=== PATIENT | male | born 1960 | race Caucasian/White ===

== ENCOUNTER 2018-02-15 10:55 | Emergency (ER) | payer MEDICARE ==
[2018-02-15] MEDS ORDERED: PENICILLIN V POTASSIUM 250 MG TAB PO ONE (11:01)
[2018-02-15] MEDS ORDERED: HYDROCODONE/APAP 7.5/325MG TABLET PO ONE (11:01)
--- NOTE | 2018-02-15 11:06 | Emergency Department Record ---
History of Present Illness - General Chief complaint: ENT Stated complaint: TOOTH ACHE Time Seen by Provider: 02/15/18 11:01 Source: Patient Mode of Arrival: Ambulatory Limitations: No limitations - History of Present Illness Initial comments: 57 yo male presents with left lower posterior molar pain. He has had problems there in the past. The area became painful the last 3 days. No recent dental work. No facial swelling or redness. No pus or significant swelling. MD complaint: Tooth pain -: Days(s) (3) Location: Tooth # (17-18) Severity: Moderate Quality: Aching Consistency: Constant Improves with: None Worsens with: Eating Associated Symptoms: Gum swelling - Related Data Previous Rx's Medication Instructions Recorded Penicillin V Potassium 500 mg PO QID #40 tablet 02/15/18 Allergies Allergy/AdvReac Type Severity Reaction Status Date / Time No Known Allergies Allergy Unverified 01/16/18 15:25 Review of Systems Constitutional: Denies: Chills, Fever, Malaise, Weakness Eyes: Denies: Eye discharge, Eye pain, Photophobia, Vision change ENT: Reports: As per HPI, Dental pain. Denies: Congestion, Throat pain Respiratory: Denies: Cough, Dyspnea, Hemoptysis, Wheezes Cardiovascular: Denies: Chest pain, Palpitations, Syncope Endocrine: Denies: Fatigue Gastrointestinal: Denies: Abdominal pain, Diarrhea, Nausea, Vomiting Genitourinary: Denies: Dysuria, Frequency, Hematuria Musculoskeletal: Reports: Back pain (chronic) Skin: Denies: Bruising, Change in color, Rash Neurological: Denies: Headache Psychiatric: Denies: Anxiety Hematological/Lymphatic: Denies: Blood Clots, Easy bleeding, Easy bruising, Swollen glands Physical Exam - General General Appearance: Alert, Oriented x3, Cooperative, No acute distress Limitations: No limitations - Head Head exam: Normal inspection - Eye Eye exam: Normal appearance. negative: Conjunctival injection, Periorbital swelling - ENT ENT exam: Normal exam, Mucous membranes moist, Normal orophraynx Ear exam: Normal external inspection Nasal Exam: Normal inspection Mouth exam: Normal external inspection Teeth exam: Dental caries, Dental tenderness #, Gingival enlargement (minimal in the area of #17) Throat exam: Normal inspection - Neck Neck exam: Normal inspection, Full ROM. negative: Lymphadenopathy - Rectal Rectal exam: Deferred - exam: Deferred - Neurological Neurological exam: Alert, Oriented X3 - Psychiatric Psychiatric exam: Normal affect, Normal mood - Skin Skin exam: Dry, Intact, Normal color, Warm Course - Reevaluation(s) Reevaluation #1: 02/15/18 11:04 No signs of abscess, mass or swelling, local tenderness Disposition Disposition: Discharge Clinical Impression: Pain, dental Disposition: Home, Self-Care Condition: (1) Good Instructions: Toothache (ED) Additional Instructions: Take the prescriptions provided today as directed. Call your family doctor. Call to schedule the next available appointment for a recheck. Return to ED if your symptoms worsen or if you have any new concerns. Review the final Emergency Record and test results with your doctor on follow up Call the number for a follow up dental appointment with the numbers provided Prescriptions: Penicillin V Potassium 500 mg PO QID #40 tablet Time of Disposition: 11:04 Quality - Quality Measures Quality Measures: N/A - Blood Pressure Screening Does Patient Have Any of the Following: Active Dx of HTN Systolic Measurement: ~ Screening for High Blood Pressure: Patient Exclusion, Hx of HTN [G9744]
== END 2018-02-15 11:15 | disposition home or self-care (01) ==
LOC: ER 10:55
DX: K02.9 Dental caries, unspecified (principal)
CPT/HCPCS: 99282

== ENCOUNTER 2018-10-14 00:31 | Observation (INO) | payer SELFPAY ==
--- NOTE | 2018-10-14 00:52 | Emergency Department Record ---
History of Present Illness - General Chief Complaint: Fall Injury Stated Complaint: FALL Time Seen by Provider: 10/14/18 00:42 Source: Patient Mode of Arrival: Ambulatory Limitations: No limitations - History of Present Illness Initial Comments: The patient is here due to passing out at home and hitting his head. He was in the garage drinking alcohol and was standing when he suddenly lost consciousness and fell backwards, hitting his head on the floor. It was witnessed by a friend he was drinking with. The patient then possibly was not breathing and did not have a pulse and supposedly the friend did CPR on the patient briefly. The patient then woke up and soon was back to normal. There was no reported seizure activity, tongue biting, or incontinence. The patient denied any CP, SOB, or SIMPSON prior to the the passing out and he has felt well since with no symptoms of pain or discomfort. The patient states he has had a similar episode in the past with passing out due to cigarette smoke which was similar to what occurred this AM. MD Complaint: Fall Onset/Timin -: Minutes(s) Fall From: Standing When Fall Occurred: Just prior to arrival Fall Witnessed: No Place Fall Occurred: Home Loss of Consciousness: Unsure Prolonged Down Time?: Unclear Location: Head Severity: Moderate Severity scale (1-10): 4 Quality: Aching Context: Alcohol use, Other Associated Symptoms: Headache - [place] Coma Scale Eye Response: (4) Open spontaneously Motor Response: (4) Withdraws to pain - Related Data Allergies Allergy/AdvReac Type Severity Reaction Status Date / Time No Known Allergies Allergy PT UNSURE Unverified 09/16/18 15:33 OF REACTION ketorolac [From Toradol] AdvReac PT UNSURE Verified 10/14/18 03:15 OF REACTION Travel Screening - Travel/Exposure Within Last 30 Days Have you traveled within the last 30 days?: No - Travel Symptoms Symptom Screening: None Review of Systems Constitutional: Denies: Chills, Fever Eyes: Denies: Eye discharge ENT: Denies: Congestion Respiratory: Denies: Cough, Dyspnea Cardiovascular: Denies: Arrhythmia, Chest pain Endocrine: Denies: Fatigue Gastrointestinal: Denies: Abdominal pain Genitourinary: Denies: Dysuria Musculoskeletal: Denies: Arthralgia Skin: Denies: Bruising Neurological: Denies: Abnormal gait Past Medical History - SOCIAL HISTORY Smoking Status: Former smoker Alcohol Use: Heavy Drug Use: Heavy - RESPIRATORY Hx Respiratory Disorders: No - CARDIOVASCULAR Hx Cardio Disorders: Yes Hx Hypertension: Yes - NEURO Hx Neuro Disorders: No - GI Hx GI Disorders: No - Hx Genitourinary Disorders: No - ENDOCRINE Hx Endocrine Disorders: Yes Hx Diabetes: Yes - MUSCULOSKELETAL Hx Musculoskeletal Disorders: No - PSYCH Hx Psych Problems: No - HEMATOLOGY/ONCOLOGY Hx Hematology/Oncology Disorders: No Family Medical History Any Significant Family History?: No Family Hx Comment (NOT TO BE USED IN PLACE OF ITEMS BELOW): denies Physical Exam - General General Appearance: Alert, Oriented x3, Cooperative, No acute distress - Head Head exam: Normocephalic (There is a stellate lac to the back of the head.). negative: Atraumatic, Normal inspection Image of Face/Head: 1 - Area of stellate Y lac. - Eye Eye exam: Normal appearance, PERRL - ENT Throat exam: Normal inspection. negative: Tonsillar erythema, Tonsillar exudate - Neck Neck exam: Normal inspection, Full ROM. negative: Tenderness - Respiratory Respiratory exam: Normal lung sounds bilaterally, Chest wall tenderness (There is mild L posterior mid to lower rib tenderness.). negative: Respiratory distress - Cardiovascular Cardiovascular Exam: Regular rate, Normal rhythm, Normal heart sounds. negative: Diastolic murmur, Systolic murmur - GI/Abdominal GI/Abdominal exam: Soft, Normal bowel sounds. negative: Rebound, Rigid, Tenderness - Extremities Extremities exam: Normal inspection, Full ROM, Normal capillary refill. negative: Tenderness Image of Full Body: 1 - Area of the patient's rib pain and tenderness. - Back Back exam: Reports: Normal inspection, Full ROM, Other (There is no L scapular tenderness and no bruising over the bone.). Denies: Muscle spasm, Rash noted, Tenderness, Vertebral tenderness - Neurological Neurological exam: Alert, Normal gait, Oriented X3. negative: Abnormal gait, Altered, Motor sensory deficit - Psychiatric Psychiatric exam: negative: Anxious - Skin Skin exam: negative: Rash Course Vital Signs 10/14/18 00:37 Temperature 97.3 F L Pulse Rate [ 90 Pulse Ox Probe] Respiratory 20 Rate Blood Pressure 148/87 [Right Arm] Pulse Ox 99 - Reevaluation(s) Reevaluation #1: The patient is doing very well at this time. He denies any SOB, anterior chest pain or dizziness. The patient is having more pain to the L posterior ribs and since he possibly did have CPR performed we will order a chest CT to be sure he does not have any significant rib fractures. Procedure note: The L posterior scalp lac is basically shaped in a Y and is a total of 6 cm long. The lac was minimally debrided and cleansed with betadine and sterile saline and closed with 12 annel. 10/14/18 02:31 Reevaluation #2: The patient is doing very well at this time. He is resting comfortably and only has a mild SIMPSON and mild L posterior rib pain. I did discuss the neg chest CT for any rib or lung pathology but which did report a possible L scapula fx. The patient states he has a hx of an old scapula fx and does not feel like it is broken at this time. On exam the patient is not tender over the L scapula so clinically it does not appear fractured. 10/14/18 04:08 Medical Decision Making - Data Complexity MDM Data: Labs Ordered and/or Reviewed, X-Ray Ordered and/or Reviewed, EKG Ordered and/or Reviewed - Lab Data Result diagrams: 10/14/18 00:50 10/14/18 00:50 - EKG Data -: EKG Interpreted by Me (NSR at 96, Neg ST changes, nonspeicific T changes inferior leads.) - Radiology Data Radiology results: Report reviewed (Head CT: Neg for any acute abnormalities. Cervical CT: Neg for any acute changes. CXR: Neg Chest CT: Possible L scapula fx.) Disposition Disposition: Admit Clinical Impression: Syncope Qualifiers: Syncope type: unspecified Qualified Code(s): R55 - Syncope and collapse Disposition: Still a Patient at [facility] Decision to Admit: Admit from ER Decision to Admit Date: 10/14/18 Decision to Admit Time: 04:10 Accepting Physician: Fernander Time Discussed w/Accepting Physician: 04:10 Condition: (2) Stable Forms: Patient Portal Access Time of Disposition: 04:10 Quality - Quality Measures Quality Measures: N/A - Blood Pressure Screening View Details: Yes Does Patient Have Any of the Following: No Blood Pressure Classification: Pre-Hypertensive BP Reading Systolic Measurement: 134 Diastolic Measurement: 88 Screening for High Blood Pressure: < Pre-Hypertensive BP, F/U Documented > [G8950] Pre-Hypertensive Follow-up Interventions: Referral to alternative/primary care provider.
[2018-10-14 00:56] LABS: ABSOLUTE NEUTROPHIL COUNT 3.09; BASO % 0.2 % (0-6); EOS % 2.2 % (0-6); GRAN % 61.7 % (47-80); HEMATOCRIT 41.8 % (42.0-52.0); HEMOGLOBIN 14.4 gm/dl (14.0-18.0); LYMPH % 28.1 % (16-45); MEAN CELL VOLUME 87.4 fl (81-97); MEAN CORPUSCULAR HEMOGLOBIN 30.1 pg (27-33); MEAN CORPUSCULAR HGB CONC 34.4 g/dl (32-36); MONO % 7.8 % (0-9); PLATELET COUNT 161 K/uL (130-400); RED BLOOD COUNT 4.78 M/uL (4.40-5.70); RED CELL DISTRIBUTION WIDTH 11.8 % (11.5-14.5)
[2018-10-14 01:09] LABS: BLOOD UREA NITROGEN 17 mg/dL (8-23); CREATININE 0.8 mg/dL (0.7-1.2); EST GLOMERULAR FILTRATION RATE > 60 mL/min
[2018-10-14 01:10] LABS: TOTAL PROTEIN 6.1 g/dL (6.6-8.7)
[2018-10-14 01:11] LABS: INR 1.1; PARTIAL THROMBOPLASTIN TIME 23.1 SECONDS (24.5-39.1); PROTHROMBIN TIME (PATIENT) 10.7 SECONDS (9.5-12.1)
[2018-10-14 01:12] LABS: GLUCOSE,RANDOM 302 mg/dL (74-109)
[2018-10-14 01:14] LABS: ALB/GLOB RATIO 2.2 (1.1-1.8); ALBUMIN 4.2 g/dL (4.0-5.0); ALT/SGPT 21 U/L (<41); AST/SGOT 17 U/L (10.0-50.0)
[2018-10-14 01:15] LABS: ALKALINE PHOSPHATASE 68 U/L (40-129); CREATINE PHOSPHOKINASE 123 U/L (39-308)
[2018-10-14 01:16] LABS: CKMB 2.9 ng/mL (<6.73)
[2018-10-14] MEDS ORDERED: LIDOCAINE 1% W/EPI 1:200,000 MPF 30ML SQ ONE (01:40)
[2018-10-14 02:01] LABS: AMPHETAMINE SCREEN URINE NOT DETECTED; BARBITURATE SCREEN URINE NOT DETECTED; BENZODIAZEPINE SCREEN URINE NOT DETECTED; COCAINE SCREEN URINE NOT DETECTED; METHADONE SCREEN URINE NOT DETECTED; METHAMPHETAMINE SCREEN NOT DETECTED; OPIATE SCREEN URINE NOT DETECTED; OXYCODONE SCREEN URINE NOT DETECTED; PHENCYCLIDINE SCREEN URINE NOT DETECTED; PROPOXYPHENE SCREEN URINE NOT DETECTED; THC SCREEN URINE DETECTED; TRICYCLIC ANTIDEPRESSANT SCRN NOT DETECTED
[2018-10-14] MEDS ORDERED: KETOROLAC 30 MG/ML VIAL IVP ONE (03:04)
[2018-10-14] MEDS ORDERED: HYDROMORPHONE HCL 2 MG/ML VIAL IVP ONE (03:14)
[2018-10-14] MEDS: IBUPROFEN 600 MG TABLET PO ONE ×2 (03:22→03:36)
[2018-10-14] MEDS ORDERED: HYDROCODONE/APAP 5/325MG TABLET PO PRN (04:31)
[2018-10-14] MEDS: ACETAMINOPHEN 325 MG TAB PO PRN ×2 (05:20→11:34)
[2018-10-14] MEDS ORDERED: GLIPIZIDE 5 MG TABLET PO SCH (08:15)
[2018-10-14] MEDS: LISINOPRIL 5 MG TABLET PO SCH ×2 (08:25→09:34)
[2018-10-14] MEDS: ASPIRIN 81 MG TABEC PO SCH ×2 (08:26→09:34)
[2018-10-14] MEDS: PIOGLITAZONE HCL 15 MG TABLET PO SCH ×2 (08:27→09:34)
--- NOTE | 2018-10-14 09:20 | History & Physical ---
History of Present Illness - Date of Service Date of Service for History & Physical: 10/14/18 - History of Present Illness Admitting Diagnosis: 1. Syncopal Event. R/O Arrythmia. History of Present Illness: Cole Banerjee is a 58 y.o. M who was brought into the ED d/t a potential syncopal episode. Had a witnessed fall last night where he fell b ackwards, hitting his head on the floor. He had been drinking alcohol and smoking marijuana with a friend who started CPR on the patient when he was not breathing. He denied having any CP, SOB, heart palpitations or dizziness before the episode. Also c/o L rib pain which imaging showed negative for fx. Significant Head Laceration, which was repaired by Dr. Powell in ED. PMHx includes DM II and HTN PCP: Uzma Vela NP ED Course Vitals: T 97.3, HR 90, BP 148/87, RR 20, SPO2 99% on RA EKG: Sinus Rhythm, Negative ST changes, nonspecific T changes Head CT: Negative Cervical CT: Negative CXR: Negative Chest CT: Left scapula fx (pt reports is old) Labs: CBC WNL, Glucose 302, Trops Neg. Tox Panel: + Cannabis and Alcohol 0.026 10/14/18 1030 Vitals: T 98.1, HR 87, BP 141/70, RR 16, SPO2 96% on RA Reports pain 2/10 to laceration site and ribs. Tylenol and Ibuprofen sufficient for pain control. Denies having any CP, SOB, MARTINS, palpitations, dizziness, lightheadedness, increased fatigue currently or in the past. States that he had an episode like this happen in 1992 and he had a cardiac work up done and reports that nothing was wrong with his heart. Has not seen a marketing support assistant since and doesn't believe he needs to. Reports that any time he smokes cigarettes, he will get very lightheaded and dizzy and this is why he has basically stopped smoking. Believes this is all related to tobacco use. Reports that Dr. Powell stated that he needed to keep annel in laceration site for 10 days and that he was told he could return to the [facility] ED to have them removed so that he wouldn't be charged anything. States that he does not have very good insurance coverage and has to pay out of pocket for many things. Travel Screening - Travel/Exposure Within Last 30 Days Have you traveled within the last 30 days?: No - Travel/Exposure Within Last Year Have you traveled outside the [place] in the last year?: No - Additonal Travel Details Have you been exposed to anyone with a communicable illness?: No - Travel Symptoms Symptom Screening: None Review of Systems Constitutional: Denies: Chills, Fever, Weakness Eyes: Denies: Eye discharge ENT: Denies: Congestion Respiratory: Denies: Cough, Dyspnea Cardiovascular: Denies: Arrhythmia, Chest pain Endocrine: Denies: Fatigue Gastrointestinal: Denies: Abdominal pain Genitourinary: Denies: Dysuria Musculoskeletal: Denies: Arthralgia Skin: Denies: Bruising Neurological: Denies: Abnormal gait Past Medical History - SOCIAL HISTORY Smoking Status: Former smoker Alcohol Use: Occasional Drug Use: Heavy Drug Use Detail:: Marijuana - RESPIRATORY Hx Respiratory Disorders: No - CARDIOVASCULAR Hx Cardio Disorders: Yes Hx Hypertension: Yes - NEURO Hx Neuro Disorders: No - GI Hx GI Disorders: No - Hx Genitourinary Disorders: No - ENDOCRINE Hx Endocrine Disorders: Yes Hx Diabetes: Yes - MUSCULOSKELETAL Hx Musculoskeletal Disorders: No - PSYCH Hx Psych Problems: No - HEMATOLOGY/ONCOLOGY Hx Hematology/Oncology Disorders: No Family Medical History Any Significant Family History?: No Family Hx Comment (NOT TO BE USED IN PLACE OF ITEMS BELOW): denies H&P Meds/Allergies - Allergies Allergies: Allergies Allergy/AdvReac Type Severity Reaction Status Date / Time ketorolac [From Toradol] AdvReac PT UNSURE Verified 10/14/18 03:15 OF REACTION - Active Medications Active Medications: Current Medications Acetaminophen (Tylenol 325mg) 650 mg PO Q6H PRN PRN Reason: PAIN - MILD(1-4)/FEVER Last Admin: 10/14/18 05:20 Dose: 650 mg Documented by: Hydrocodone Bitart/Acetaminophen ([place] 5mg/325mg) 1 each PO Q4H PRN PRN Reason: PAIN - MOD TO SEVERE (5-10) Aspirin (Ecotrin (Ec)) 81 mg PO DAILYWM [facility] Last Admin: 10/14/18 08:26 Dose: 81 mg Documented by: Glipizide (Glucotrol) 10 mg PO DAILYWM [facility] Last Admin: 10/14/18 08:25 Dose: 10 mg Documented by: Lisinopril (Zestril) 5 mg PO DAILYWM [facility] Last Admin: 10/14/18 08:25 Dose: 5 mg Documented by: Pioglitazone HCl (Actos) 15 mg PO DAILYWM [facility] Last Admin: 10/14/18 08:27 Dose: 15 mg Documented by: Physical Exam - Vital Signs Vital Signs: Vital Signs - Last 24 Hrs Temp Pulse Pulse Resp BP BP Pulse Ox 10/14/18 08:00 98.1 F 87 16 141/70 96 10/14/18 05:03 18 10/14/18 04:30 98.0 F 84 18 124/79 97 10/14/18 04:13 91 H 20 134/88 96 10/14/18 03:04 88 20 139/87 96 10/14/18 02:06 88 20 139/89 97 10/14/18 00:37 97.3 F L 90 20 148/87 99 - General General Appearance: Alert, Oriented x3, Cooperative, No acute distress Limitations: No limitations - Head Head exam: Normocephalic (There is a stellate lac to the back of the head.). negative: Atraumatic, Normal inspection - Eye Eye exam: Normal appearance, PERRL - ENT Throat exam: Normal inspection. negative: Tonsillar erythema, Tonsillar exudate - Neck Neck exam: Normal inspection, Full ROM. negative: Tenderness - Respiratory Respiratory exam: Normal lung sounds bilaterally, Chest wall tenderness (There is mild L posterior mid to lower rib tenderness.). negative: Respiratory distress - Cardiovascular Cardiovascular Exam: Regular rate, Normal rhythm, Normal heart sounds. negative: Diastolic murmur, Systolic murmur - GI/Abdominal GI/Abdominal exam: Soft, Normal bowel sounds. negative: Rebound, Rigid, Tenderness - Extremities Extremities exam: Normal inspection, Full ROM, Normal capillary refill. n egative: Tenderness - Back Back exam: Reports: Normal inspection, Full ROM, Other (There is no L scapular tenderness and no bruising over the bone.). Denies: Muscle spasm, Rash noted, Tenderness, Vertebral tenderness - Neurological Neurological exam: Alert, Normal gait, Oriented X3. negative: Abnormal gait, Altered, Motor sensory deficit - Psychiatric Psychiatric exam: negative: Anxious - Skin Skin exam: Other (laceration with annel to posterior head). negative: Rash Results - Labs Result Diagrams: 10/14/18 00:50 10/14/18 00:50 Labs Last 24 Hours: Laboratory Results - last 24 hr 10/14/18 10/14/18 10/14/18 00:50 00:50 00:50 WBC 5.0 RBC 4.78 Hgb 14.4 Hct 41.8 L MCV 87.4 MCH 30.1 MCHC 34.4 RDW 11.8 Plt Count 161 MPV 10.0 Gran % 61.7 Lymphocytes % 28.1 Monocytes % 7.8 Eosinophils % 2.2 Basophils % 0.2 Absolute Neutrophils 3.09 PT 10.7 INR 1.1 APTT 23.1 L Sodium 137 Potassium 3.4 Chloride 97 L Carbon Dioxide 24.0 Anion Gap 16.0 BUN 17 Creatinine 0.8 Estimated GFR > 60 Random Glucose 302 H Calcium 8.6 L Total Bilirubin 0.40 AST 17 ALT 21 Alkaline Phosphatase 68 Creatine Kinase 123 CK-MB (CK-2) 2.9 Troponin T < 0.010 Total Protein 6.1 L Albumin 4.2 Globulin 1.9 Albumin/Globulin Ratio 2.2 H Urine Opiates Screen Ur Oxycodone Screen Urine Methadone Screen Ur Propoxyphene Screen Ur Barbituates Screen Ur Tricyclics Screen Ur Phencyclidine Scrn Ur Amphetamine Screen U Methamphetamines Scrn U Benzodiazepines Scrn Urine Cocaine Screen Urine Cannabis Screen Ethyl Alcohol 10/14/18 10/14/18 10/14/18 00:50 02:00 06:30 WBC RBC Hgb Hct MCV MCH MCHC RDW Plt Count MPV Gran % Lymphocytes % Monocytes % Eosinophils % Basophils % Absolute Neutrophils PT INR APTT Sodium Potassium Chloride Carbon Dioxide Anion Gap BUN Creatinine Estimated GFR Random Glucose Calcium Total Bilirubin AST ALT Alkaline Phosphatase Creatine Kinase CK-MB (CK-2) Troponin T < 0.010 Total Protein Albumin Globulin Albumin/Globulin Ratio Urine Opiates Screen Not detected Ur Oxycodone Screen Not detected Urine Methadone Screen Not detected Ur Propoxyphene Screen Not detected Ur Barbituates Screen Not detected Ur Tricyclics Screen Not detected Ur Phencyclidine Scrn Not detected Ur Amphetamine Screen Not detected U Methamphetamines Scrn Not detected U Benzodiazepines Scrn Not detected Urine Cocaine Screen Not detected Urine Cannabis Screen Detected Ethyl Alcohol 0.026 H VTE H&P Assessment - Risk for VTE Risk for VTE: Yes Risk Level: Low Risk Assessment Date: 10/14/18 Risk Assessment Time: 10:30 VTE Orders Placed or Will Be Placed: Yes Plan - Detailed Diagnosis and Plan (1) Syncope Current Visit: Yes Status: Acute Qualifiers: Syncope type: unspecified Qualified Code(s): R55 - Syncope and collapse Base Code: R55 - SYNCOPE AND COLLAPSE Comment: 10/14/18 -Loss of consciousness with fall backwards resulting in head lac. -+cannabis and alcohol on tox screen -EKG: NSR -Trops x 2 Negative -Head CT, Cervical CT, CXR Negative. Chest CT: Possible L scapula fx -Cardiology consult recommended however not available until Saturday10/15/18 -Echocardiogram ordered, may consider discharge following echo with outpatient Cardiology appointment (2) Laceration of head Current Visit: Yes Status: Acute Base Code: S01.91XA - LACERATION W/O FOREIGN BODY OF UNSP PART OF HEAD, INIT Comment: 10/14/18 -Head laceration repaired by Dr. Powell in ED with 12 annel -Pressure dressing removed -Was told (by Dr. Powell) to return to ED in 10 days (10/23/18) for staple removal (3) Full code status Current Visit: Yes Status: Acute Base Code: Z78.9 - OTHER SPECIFIED HEALTH STATUS Comment: 10/14/18 -Full code this admission (4) DVT prophylaxis Current Visit: Yes Status: Acute Base Code: Z29.9 - ENCOUNTER FOR PROPHYLACTIC MEASURES, UNSPECIFIED Comment: 10/14/18 -Nursing to Encourage ambulation
--- NOTE | 2018-10-14 17:35 | Discharge Summary ---
Providers Discharge Summary Date: 10/14/18 Date of admission: 10/14/18 04:28 Attending physician: RAHAT POOLE Physical Exam - Vital Signs Vital Signs: Vital Signs - Last 24 Hrs Temp Pulse Pulse Resp BP BP Pulse Ox 10/14/18 16:15 98.2 F 80 18 122/84 100 10/14/18 12:00 81 16 130/79 100 10/14/18 08:00 98.1 F 87 16 141/70 96 10/14/18 05:03 18 10/14/18 04:30 98.0 F 84 18 124/79 97 10/14/18 04:13 91 H 20 134/88 96 10/14/18 03:04 88 20 139/87 96 10/14/18 02:06 88 20 139/89 97 10/14/18 00:37 97.3 F L 90 20 148/87 99 - General General Appearance: Alert, Oriented x3, Cooperative, No acute distress Limitations: No limitations - Head Head exam: Normocephalic (There is a stellate lac to the back of the head.). negative: Atraumatic, Normal inspection - Eye Eye exam: Normal appearance, PERRL - ENT Throat exam: Normal inspection. negative: Tonsillar erythema, Tonsillar exudate - Neck Neck exam: Normal inspection, Full ROM. negative: Tenderness - Respiratory Respiratory exam: Normal lung sounds bilaterally, Chest wall tenderness (There is mild L posterior mid to lower rib tenderness.). negative: Respiratory distress - Cardiovascular Cardiovascular Exam: Regular rate, Normal rhythm, Normal heart sounds. negative: Diastolic murmur, Systolic murmur - GI/Abdominal GI/Abdominal exam: Soft, Normal bowel sounds. negative: Rebound, Rigid, Tenderness - Extremities Extremities exam: Normal inspection, Full ROM, Normal capillary refill. negative: Tenderness - Back Back exam: Reports: Normal inspection, Full ROM, Other (There is no L scapular tenderness and no bruising over the bone.). Denies: Muscle spasm, Rash noted, Tenderness, Vertebral tenderness - Neurological Neurological exam: Alert, Normal gait, Oriented X3. negative: Abnormal gait, Altered, Motor sensory deficit - Psychiatric Psychiatric exam: negative: Anxious - Skin Skin exam: Other (laceration with annel to posterior head). negative: Rash Hospitalization - Hospitalization Admission Diagnosis: 1. Syncopal Event. R/O Arrythmia. - Problem List/Discharge Diagnosis (1) Syncope Current Visit: Yes Status: Acute Discharge Diagnosis: Syncope type: unspecified Qualified Code(s): R55 - Syncope and collapse Base Code: R55 - SYNCOPE AND COLLAPSE Comment: 10/14/18 -Echocardiogram unremarkable -Outpatient Cardiology appointment made (2) Laceration of head Current Visit: Yes Status: Acute Base Code: S01.91XA - LACERATION W/O FOREIGN BODY OF UNSP PART OF HEAD, INIT Comment: 10/14/18 -Head laceration repaired by Dr. Powell in ED with 12 annel -Pressure dressing removed -Was told (by Dr. Powell) to return to ED in 10 days (10/23/18) for staple removal (3) Full code status Current Visit: Yes Status: Acute Base Code: Z78.9 - OTHER SPECIFIED HEALTH STATUS Comment: 10/14/18 -Full code this admission (4) DVT prophylaxis Current Visit: Yes Status: Acute Base Code: Z29.9 - ENCOUNTER FOR PROPHYLACTIC MEASURES, UNSPECIFIED Comment: 10/14/18 -Nursing to Encourage ambulation - Hospitalization Course Disposition: Home, Self-Care Hospital Course: Cole Banerjee is a 58 y.o. M who was brought into the ED d/t a potential syncopal episode. Had a witnessed fall last night where he fell backwards, hitting his head on the floor. He had been drinking alcohol and smoking marijuana with a friend who started CPR on the patient when he was not breathing. He denied having any CP, SOB, heart palpitations or dizziness before the episode. Also c/o L rib pain which imaging showed negative for fx. Significant Head Laceration, which was repaired by Dr. Powell in ED. PMHx includes DM II and HTN PCP: Uzma Vela NP ED Course Vitals: T 97.3, HR 90, BP 148/87, RR 20, SPO2 99% on RA EKG: Sinus Rhythm, Negative ST changes, nonspecific T changes Head CT: Negative Cervical CT: Negative CXR: Negative Chest CT: Left scapula fx (pt reports is old) Labs: CBC WNL, Glucose 302, Trops Neg. Tox Panel: + Cannabis and Alcohol 0.026 10/14/18 1030 Vitals: T 98.1, HR 87, BP 141/70, RR 16, SPO2 96% on RA Reports pain 2/10 to laceration site and ribs. Tylenol and Ibuprofen sufficient for pain control. Denies having any CP, SOB, MARTINS, palpitations, dizziness, lightheadedness, increased fatigue currently or in the past. States that he had an episode like this happen in 1992 and he had a cardiac work up done and reports that nothing was wrong with his heart. Has not seen a compo conveyor operator since and doesn't believe he needs to. Reports that any time he smokes cigarettes, he will get very lightheaded and dizzy and this is why he has basically stopped smoking. Believes this is all related to tobacco use. Reports that Dr. Powell stated that he needed to keep annel in laceration site for 10 days and that he was told he could return to the [facility] ED to have them removed so that he wouldn't be charged anything. States that he does not have very good insurance coverage and has to pay out of pocket for many things. 10/14/18 1400 Echocardiogram unremarkable. Trops negative. Case management set up outpatient appointment with Cardiology. Pt would like to discharge home. Procedures: Imaging and X-Rays 10/14/18 00:47 CERVICAL SPINE WO CONTRAST [CT] Stat CHEST 2 VIEWS [RAD] Stat HEAD WO CONTRAST [CT] Stat 10/14/18 02:28 CHEST WO CONTRAST [CT] Stat Cardiology Procedures 10/14/18 00:47 Coding File Clerk NOW EKG NOW 10/14/18 04:31 Coding File Clerk .Continuous EKG QDX2@0600 10/14/18 11:53 Echo W/CF & Cardiac Doppler NOW Abnormal Labs: Abnormal Lab Results 10/14/18 10/14/18 10/14/18 Range/Units 00:50 00:50 00:50 Hct 41.8 L (42.0-52.0) % APTT 23.1 L (24.5-39.1) SECONDS Chloride 97 L (98-107) mmol/L Random Glucose 302 H (74-109) mg/dL Calcium 8.6 L (8.8-10.2) mg/dL Total Protein 6.1 L (6.6-8.7) g/dL Albumin/Globulin Ratio 2.2 H (1.1-1.8) Ethyl Alcohol (0-0.010) g/dL 10/14/18 Range/Units 00:50 Hct (42.0-52.0) % APTT (24.5-39.1) SECONDS Chloride (98-107) mmol/L Random Glucose (74-109) mg/dL Calcium (8.8-10.2) mg/dL Total Protein (6.6-8.7) g/dL Albumin/Globulin Ratio (1.1-1.8) Ethyl Alcohol 0.026 H (0-0.010) g/dL Condition at Discharge: (2) Stable Discharge Plan - Discharge Instructions Activity at Discharge: Increase Activity as Tolerated, Resume Usual Activities As Tolerated Instructions: Laceration (DC) Additional Instructions: Appointment with Uzma Vela NP at [facility] October 20 at 4:20pm. Appointment with Dr. Glasgow at [facility] November 06 at 3:00pm. Address: [address] [place] [address]. Call if questions or need to change appointment. Please return to emergency room in 10 days for staple removal Quality Measures - Quality Measures Quality Measures: Documentation of Current Medications in Medical Record, Screening for High Blood Pressure and F/U Documented - Current Medications Quality Measure: Measure #130: Documentation of Current Medications Documentation of Current Medications: <Current Medications Documented/Reviewed> [G8427] - Blood Pressure Screening Quality Measure: Screening for High Blood Pressure and Follow-Up Documented Does Patient Have Any of the Following: Active Dx of HTN Blood Pressure Classification: Pre-Hypertensive BP Reading Systolic Measurement: 122 Diastolic Measurement: 84 Screening for High Blood Pressure: Patient Exclusion, Hx of HTN [G9744] - Elder Abuse Suspicion Index EASI Reference Information: Radha TAN, Carlo C, Yessenia D, Rolando Hansen.Development and validation of a tool to assist physicians identification of elder abuse: The Elder Abuse Suspicion Index (EASI ). Journal of Elder Abuse and Neglect, 2008; 20 (3): 276-300.
--- NOTE | 2018-10-14 19:38 | CT SCAN REPORT ---
EXAM: CT SCAN HEAD WO CONTRAST HISTORY: FELL OUT OF CHAIR ONTO CEMENT FLOOR. LACERATION TO LEFT POSTERIOR HEAD. DIZZINESS. TECHNIQUE: Routine noncontrast CT examination of the brain. COMPARISON: No prior imaging of the head available for comparison. Same-day noncontrast CT examination of the cervical spine. FINDINGS: The ventricles and subarachnoid spaces are normal in size for age. No area of abnormally increased or decreased or attenuation is noted throughout the brain substance. 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 No abnormal extraaxial fluid collection is seen. No acute skull fracture is identified. There is a small amount of fluid in the dependent right maxillary sinus consistent with mild inflammatory change. The visualized paranasal sinuses and mastoid air cells are otherwise clear. The orbits as visualized are unremarkable. There is a left occipital parietal cephalohematoma measuring approximately 4.5 cm in diameter and 8 mm in thickness. An associated small laceration is possible. No foreign body. IMPRESSION: 1. NO ACUTE INTRACRANIAL ABNORMALITY NOR SKULL FRACTURE. 2. 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 NO FOREIGN BODY. 3. MILD INFLAMMATORY CHANGES OF THE RIGHT MAXILLARY SINUS. JOB NUMBER: [id number] [facility]
--- NOTE | 2018-10-14 19:46 | CT SCAN REPORT ---
EXAM: CT SCAN CERVICAL SPINE WO CONTRAST HISTORY: FALL FROM CHAIR TO CEMENT FLOOR. TRAUMA TO LEFT POSTERIOR HEAD. TECHNIQUE: Thin-collimation helical CT examination of the cervical spine is performed in the axial plane without intravenous contrast. Coronal and sagittal reformatted images are generated and reviewed. COMPARISON: Same-day noncontrast CT examination of the head. Same-day CT chest without contrast. FINDINGS: There is normal bone mineralization. There is straightening of the normal cervical lordosis. There is minimal retrolisthesis of C3 on C4, likely relating to degenerative disc disease. The vertebral bodies are otherwise normal in alignment and height. No acute fracture, suspicious subluxation, or prevertebral soft tissue swelling. Moderate hypertrophic degenerative changes of the atlantodental joint are present. Multilevel degenerative disc/degenerative endplate changes are present, most pronounced at the C3-C4, C5-C6, and C6-C7 levels, where changes are moderate to severe. There is likely borderline central canal stenosis at the C3-C4 level due to posterior disc bulging and mild retrolisthesis. No other evidence of cervical spinal stenosis. Multilevel bilateral neural foraminal narrowing is present due to uncovertebral joint spurring and facet joint spurring. Mild to moderate biapical pleural and parenchymal scarring is present. No cervical mass nor adenopathy. IMPRESSION: 1. NO ACUTE FRACTURE, SUSPICIOUS SUBLUXATION, OR PREVERTEBRAL SOFT TISSUE SWELLING. 2. MULTILEVEL DEGENERATIVE CHANGES, DISCUSSED ABOVE. 3. MINIMAL RETROLISTHESIS OF C3 ON C4, LIKELY RELATING TO DEGENERATIVE DISC/DEGENERATIVE ENDPLATE CHANGES. JOB NUMBER: [id number] [facility]
--- NOTE | 2018-10-14 19:59 | CT SCAN REPORT ---
EXAM: CT SCAN CHEST WO CONTRAST HISTORY: FALL FROM CHAIR TO CEMENT FLOOR. LEFT-SIDED PAIN. TECHNIQUE: Routine noncontrast CT examination of the chest is performed. COMPARISON: Same-day two-view chest radiographic examination. FINDINGS: The heart is not enlarged. The thoracic aorta is without aneurysmal dilatation. No mediastinal nor hilar mass/lymphadenopathy is seen. There is no evidence of mediastinal hematoma. The central airways are clear. There is mild dependent atelectasis within each lung base. Mild to moderate biapical pleural and parenchymal scarring is present. No lung consolidation nor worrisome lung nodule. There is a tiny calcified subpleural nodule in the posterior aspect of the right lower lobe, as seen on series 2, image #67. No pleural or pericardial effusion. The adrenal glands are not enlarged. There is normal bone mineralization. There is evidence of an acute fracture of the infraspinous portion of the left scapula. No gross associated displacement. There are nondisplaced fractures of the posterolateral aspects of the left sixth and seventh ribs. There is also an acute fracture of the lateral left eighth rib. No other definite acute osseous fracture. There are degenerative changes scattered throughout the visualized spine. IMPRESSION: 1. ACUTE FRACTURES OF THE LEFT SCAPULA, LEFT SIXTH RIB, LEFT SEVENTH RIB, AND LEFT EIGHTH RIB. 2. NO DEFINITE ACUTE INTRATHORACIC ABNORMALITY. 3. BIAPICAL LUNG SCARRING. MINOR ATELECTASIS VS. SCARRING IN THE DEPENDENT LUNG BASES. 4. CALCIFIED GRANULOMA WITHIN THE RIGHT LOWER LOBE. [facility]BER: [id number] [facility]
--- NOTE | 2018-10-14 20:01 | RADIOLOGY REPORT ---
EXAM: CHEST 2 VIEWS HISTORY: SYNCOPE. TECHNIQUE: Upright PA and lateral views of the chest. COMPARISON: None. FINDINGS: The heart is not enlarged and the pulmonary vasculature is nondilated. Minor biapical pleural and parenchymal scarring is present. The lungs and pleural spaces are otherwise clear. No definite acute osseous abnormality. Mild degenerative endplate changes scattered throughout the visualized spine. IMPRESSION: NO RADIOGRAPHIC EVIDENCE OF ACUTE CARDIOPULMONARY DISEASE. JOB [facility]BER: [id number] [facility]
--- NOTE | 2018-10-19 20:46 | Emergency Department Record ---
History of Present Illness - General Chief Complaint: Fall Injury Stated Complaint: FALL Time Seen by Provider: 10/14/18 00:42 Source: Patient Mode of Arrival: Stretcher Limitations: No limitations - History of Present Illness Onset/Timin -: Minutes(s) Severity: Moderate Severity scale (1-10): 4 - Related Data Allergies Allergy/AdvReac Type Severity Reaction Status Date / Time ketorolac [From Toradol] AdvReac PT UNSURE Verified 10/14/18 03:15 OF REACTION Travel Screening - Travel/Exposure Within Last 30 Days Have you traveled within the last 30 days?: No - Travel/Exposure Within Last Year Have you traveled outside the [place] in the last year?: No - Additonal Travel Details Have you been exposed to anyone with a communicable illness?: No - Travel Symptoms Symptom Screening: None Review of Systems Constitutional: Denies: Chills, Fever, Weakness Eyes: Denies: Eye discharge ENT: Denies: Congestion Respiratory: Denies: Cough, Dyspnea Cardiovascular: Denies: Arrhythmia, Chest pain Endocrine: Denies: Fatigue Gastrointestinal: Denies: Abdominal pain Genitourinary: Denies: Dysuria Musculoskeletal: Denies: Arthralgia Skin: Denies: Bruising Neurological: Denies: Abnormal gait Past Medical History - SOCIAL HISTORY Smoking Status: Former smoker Alcohol Use: Occasional Drug Use: Heavy Drug Use Detail:: Marijuana - RESPIRATORY Hx Respiratory Disorders: No - CARDIOVASCULAR Hx Cardio Disorders: Yes Hx Hypertension: Yes - NEURO Hx Neuro Disorders: No - GI Hx GI Disorders: No - Hx Genitourinary Disorders: No - ENDOCRINE Hx Endocrine Disorders: Yes Hx Diabetes: Yes - MUSCULOSKELETAL Hx Musculoskeletal Disorders: No - PSYCH Hx Psych Problems: No - HEMATOLOGY/ONCOLOGY Hx Hematology/Oncology Disorders: No Family Medical History Any Significant Family History?: No Family Hx Comment (NOT TO BE USED IN PLACE OF ITEMS BELOW): denies Physical Exam - General Limitations: No limitations Course Vital Signs 10/14/18 10/14/18 10/14/18 00:37 02:06 03:04 Temperature 97.3 F L Pulse Rate [ 88 [employer] ] Pulse Rate [ 90 88 Pulse Ox Probe] Respiratory 20 20 20 Rate Blood Pressure 139/87 [Left Arm] Blood Pressure 148/87 139/89 [Right Arm] Pulse Ox 99 97 96 10/14/18 10/14/18 04:13 04:30 Temperature 98.0 F Pulse Rate [ 91 H [employer] ] Pulse Rate [ 84 Pulse Ox Probe] Respiratory 20 18 Rate Blood Pressure 134/88 124/79 [Left Arm] Blood Pressure [Right Arm] Pulse Ox 96 97 - Reevaluation(s) Reevaluation #1: I did call the patient to check on his condition. I also did relay to him that his L 6-8 ribs are fractured which was initially mis-read as neg on the night [facility] reading. I also did discuss the possible scapula spine nondisplaced fx with the patient. The patient does not believe that is fractured due to his old injury there and the fact it does not hurt there. The patient states he is doing very well with very little pain and no SOB or MISSAEL. He states he does have an appointment with his PCP tomorrow or Saturday and I did encourage him to keep that and to obtain an official CT report prior to the visit. He is to show the official report to his PCP. The patient again was told to return to the ER for any worsening symptoms and to keep his appointment with his PCP as planned. 10/19/18 20:41 Medical Decision Making - Lab Data Result diagrams: 10/14/18 00:50 10/14/18 00:50 Lab Results 10/14/18 10/14/18 10/14/18 Range/Units 00:50 00:50 00:50 WBC 5.0 (4.2-12.2) K/uL RBC 4.78 (4.40-5.70) M/uL Hgb 14.4 (14.0-18.0) gm/dl Hct 41.8 L (42.0-52.0) % MCV 87.4 (81-97) fl MCH 30.1 (27-33) pg MCHC 34.4 (32-36) g/dl RDW 11.8 (11.5-14.5) % Plt Count 161 (130-400) K/uL MPV 10.0 (7.4-10.4) fl Gran % 61.7 (47-80) % Lymphocytes % 28.1 (16-45) % Monocytes % 7.8 (0-9) % Eosinophils % 2.2 (0-6) % Basophils % 0.2 (0-6) % Absolute Neutrophils 3.09 PT 10.7 (9.5-12.1) SECONDS INR 1.1 APTT 23.1 L (24.5-39.1) SECONDS Sodium 137 (136-145) mmol/L Potassium 3.4 (3.4-4.5) mmol/L Chloride 97 L (98-107) mmol/L Carbon Dioxide 24.0 (22-29) mmol/L Anion Gap 16.0 (7-16) BUN 17 (8-23) mg/dL Creatinine 0.8 (0.7-1.2) mg/dL Estimated GFR > 60 mL/min Random Glucose 302 H (74-109) mg/dL Calcium 8.6 L (8.8-10.2) mg/dL Total Bilirubin 0.40 (0.2-1.0) mg/dL AST 17 (10.0-50.0) U/L ALT 21 (<41) U/L Alkaline Phosphatase 68 (40-129) U/L Creatine Kinase 123 (39-308) U/L CK-MB (CK-2) 2.9 (<6.73) ng/mL Troponin T < 0.010 (0-0.010) ng/mL Total Protein 6.1 L (6.6-8.7) g/dL Albumin 4.2 (4.0-5.0) g/dL Globulin 1.9 (1.4-4.8) gm/dL Albumin/Globulin Ratio 2.2 H (1.1-1.8) Urine Opiates Screen Ur Oxycodone Screen Urine Methadone Screen Ur Propoxyphene Screen Ur Barbituates Screen Ur Tricyclics Screen Ur Phencyclidine Scrn Ur Amphetamine Screen U Methamphetamines Scrn U Benzodiazepines Scrn Urine Cocaine Screen Urine Cannabis Screen Ethyl Alcohol (0-0.010) g/dL 10/14/18 10/14/18 Range/Units 00:50 02:00 WBC (4.2-12.2) K/uL RBC (4.40-5.70) M/uL Hgb (14.0-18.0) gm/dl Hct (42.0-52.0) % MCV (81-97) fl MCH (27-33) pg MCHC (32-36) g/dl RDW (11.5-14.5) % Plt Count (130-400) K/uL MPV (7.4-10.4) fl Gran % (47-80) % Lymphocytes % (16-45) % Monocytes % (0-9) % Eosinophils % (0-6) % Basophils % (0-6) % Absolute Neutrophils PT (9.5-12.1) SECONDS INR APTT (24.5-39.1) SECONDS Sodium (136-145) mmol/L Potassium (3.4-4.5) mmol/L Chloride (98-107) mmol/L Carbon Dioxide (22-29) mmol/L Anion Gap (7-16) BUN (8-23) mg/dL Creatinine (0.7-1.2) mg/dL Estimated GFR mL/min Random Glucose (74-109) mg/dL Calcium (8.8-10.2) mg/dL Total Bilirubin (0.2-1.0) mg/dL AST (10.0-50.0) U/L ALT (<41) U/L Alkaline Phosphatase (40-129) U/L Creatine Kinase (39-308) U/L CK-MB (CK-2) (<6.73) ng/mL Troponin T (0-0.010) ng/mL Total Protein (6.6-8.7) g/dL Albumin (4.0-5.0) g/dL Globulin (1.4-4.8) gm/dL Albumin/Globulin Ratio (1.1-1.8) Urine Opiates Screen Not detected Ur Oxycodone Screen Not detected Urine Methadone Screen Not detected Ur Propoxyphene Screen Not detected Ur Barbituates Screen Not detected Ur Tricyclics Screen Not detected Ur Phencyclidine Scrn Not detected Ur Amphetamine Screen Not detected U Methamphetamines Scrn Not detected U Benzodiazepines Scrn Not detected Urine Cocaine Screen Not detected Urine Cannabis Screen Detected Ethyl Alcohol 0.026 H (0-0.010) g/dL Disposition Clinical Impression: Syncope Qualifiers: Syncope type: unspecified Qualified Code(s): R55 - Syncope and collapse Disposition: Still a Patient at [facility] Condition: (2) Stable Quality - Quality Measures Quality Measures: N/A - Blood Pressure Screening View Details: Yes Does Patient Have Any of the Following: No Blood Pressure Classification: Pre-Hypertensive BP Reading Systolic Measurement: 122 Diastolic Measurement: 84 Screening for High Blood Pressure: < Pre-Hypertensive BP, F/U Documented > [G8950] Pre-Hypertensive Follow-up Interventions: Referral to alternative/primary care provider.
== END 2018-10-14 16:11 | disposition home or self-care (01) ==
LOC: ER 00:31 → MEDSURG 04:28
PROVIDERS: ADMIT Internal Medicine; ATTEND Internal Medicine
DX: R55 Syncope and collapse (principal); S01.91XA Laceration without foreign body of unspecified part of head, initial encounter; W18.39XA Other fall on same level, initial encounter; Y92.008 Other place in unspecified non-institutional (private) residence as the place of occurrence of the external cause; I10 Essential (primary) hypertension; E11.9 Type 2 diabetes mellitus without complications
CPT/HCPCS: 99285 ×2; 12002; 82550; 85025; 85730; 85610; 82553; 80053; 80305; 84484; 71046; 72125; 71250; 70450; 93005; 93010; 93306; G0378; G0480; 80320; 99220

== ENCOUNTER 2018-10-24 14:39 | Emergency (ER) | payer SELFPAY ==
--- NOTE | 2018-10-24 14:56 | Emergency Department Record ---
History of Present Illness - General Chief Complaint: Suture removal Stated Complaint: REMOVE FERNANDO Time Seen by Provider: 10/24/18 14:52 Source: Patient Mode of arrival: Ambulatory Limitations: No limitations - History of Present Illness MD Complaint: Suture/staple removal Onset/Timin -: Days(s) Initial Visit For: Laceration Returns Today for: Staple/stitch removal Symptoms Since Prior Visit: No new symptoms Associated Symptoms: None - Related Data Allergies Allergy/AdvReac Type Severity Reaction Status Date / Time atorvastatin [From Lipitor] Allergy SWELLING Verified 10/24/18 14:52 OF THE LIPS ketorolac [From Toradol] AdvReac PT UNSURE Verified 10/24/18 14:51 OF REACTION Travel Screening - Travel/Exposure Within Last 30 Days Have you traveled within the last 30 days?: No - Travel/Exposure Within Last Year Have you traveled outside the [place] in the last year?: No - Additonal Travel Details Have you been exposed to anyone with a communicable illness?: No - Travel Symptoms Symptom Screening: None Review of Systems Reviewed: No additional complaints except as noted below Constitutional: Reports: As per HPI. Denies: Chills, Fever, Malaise, Night sweats, Weakness, Weight change Eyes: Reports: As per HPI. Denies: Eye discharge, Eye pain, Photophobia, Vision change ENT: Reports: As per HPI. Denies: Congestion, Dental pain, Ear pain, Epistaxis, Hearing loss, Throat pain Respiratory: Reports: As per HPI. Denies: Cough, Dyspnea, Hemoptysis, Stridor, Wheezes Cardiovascular: Reports: As per HPI. Denies: Arrhythmia, Chest pain, Dyspnea on exertion, Edema, Murmurs, Orthopnea, Palpitations, Paroxysmal nocturnal dyspnea, Rheumatic Fever, Syncope Endocrine: Reports: As per HPI. Denies: Fatigue, Heat or cold intolerance, Polydipsia, Polyuria Gastrointestinal: Reports: As per HPI. Denies: Abdominal pain, Constipation, Diarrhea, Hematemesis, Hematochezia, Melena, Nausea, Vomiting Genitourinary: Reports: As per HPI. Denies: Dysuria, Frequency, Hematuria, Incontinence, Retention, Testicular pain, Testicular mass, Urgency Musculoskeletal: Reports: As per HPI. Denies: Arthralgia, Back pain, Gout, Joint swelling, Myalgia, Neck pain Skin: Reports: As per HPI. Denies: Bruising, Change in color, Change in hair/nails, Lesions, Pruritus, Rash Neurological: Reports: As per HPI. Denies: Abnormal gait, Confusion, Headache, Numbness, Paresthesias, Seizure, Tingling, Tremors, Vertigo, Weakness Psychiatric: Reports: As per HPI. Denies: Anxiety, Auditory hallucinations, Depression, Homicidal thoughts, Suicidal thoughts, Visual hallucinations Hematological/Lymphatic: Reports: As per HPI. Denies: Anemia, Blood Clots, Easy bleeding, Easy bruising, Swollen glands Past Medical History - SOCIAL HISTORY Smoking Status: Former smoker Alcohol Use: Occasional Drug Use: Occasional Drug Use Detail:: Marijuana - RESPIRATORY Hx Respiratory Disorders: No - CARDIOVASCULAR Hx Cardio Disorders: No Hx Hypertension: No - NEURO Hx Neuro Disorders: No - GI Hx GI Disorders: No - Hx Genitourinary Disorders: Yes Hx Renal Disease: Yes (related to Diabetes) - ENDOCRINE Hx Endocrine Disorders: Yes Hx Diabetes: Yes - MUSCULOSKELETAL Hx Musculoskeletal Disorders: No - PSYCH Hx Psych Problems: No - HEMATOLOGY/ONCOLOGY Hx Hematology/Oncology Disorders: No Family Medical History Any Significant Family History?: Yes Family Hx Comment (NOT TO BE USED IN PLACE OF ITEMS BELOW): denies Physical Exam - General General Appearance: Alert, Oriented x3, Cooperative, No acute distress - Head Head exam: Normal inspection Head exam detail: Laceration (healing) - Eye Eye exam: Normal appearance, PERRL, EOMI Pupils: Normal accommodation - ENT ENT exam: Normal exam, Mucous membranes moist, Normal external ear exam, Normal orophraynx Ear exam: Normal external inspection. negative: External canal tenderness Nasal Exam: Normal inspection. negative: Discharge, Sinus tenderness Mouth exam: Normal external inspection, Tongue normal Teeth exam: Normal inspection. negative: Dental caries Throat exam: Normal inspection. negative: Tonsillar erythema, Tonsillar exudate - Neck Neck exam: Normal inspection, Full ROM. negative: Tenderness - Respiratory Respiratory exam: negative: Respiratory distress - GI/Abdominal GI/Abdominal exam: Soft, Normal bowel sounds. negative: Tenderness - Rectal Rectal exam: Deferred - exam: Deferred - Extremities Extremities exam: Normal inspection, Full ROM, Normal capillary refill. negative: Tenderness - Back Back exam: Reports: Normal inspection, Full ROM. Denies: Muscle spasm, Rash noted, Tenderness - Neurological Neurological exam: Alert, CN II-XII intact, Normal gait, Oriented X3 - Psychiatric Psychiatric exam: Normal affect, Normal mood - Skin Skin exam: Dry, Intact, Normal color, Warm Course Vital Signs 10/24/18 14:41 Temperature 97.9 F Pulse Rate 82 Respiratory 16 Rate Blood Pressure 123/89 Pulse Ox 100 Disposition Disposition: Discharge Clinical Impression: Removal of staple Disposition: Home, Self-Care Condition: (1) Good Instructions: Stitches Removal (ED) Additional Instructions: follow up with family doctor. return sooner if worse Quality - Quality Measures Quality Measures: N/A - Blood Pressure Screening Does Patient Have Any of the Following: No Blood Pressure Classification: Pre-Hypertensive BP Reading Systolic Measurement: 123 Diastolic Measurement: 89 Screening for High Blood Pressure: < Pre-Hypertensive BP, F/U Documented > [[id number]] Pre-Hypertensive Follow-up Interventions: Follow-up with rescreen every year.
== END 2018-10-24 15:03 | disposition home or self-care (01) ==
LOC: ER 14:39
DX: Z48.02 Encounter for removal of sutures (principal)